=== PATIENT | male | born 1935 | race Caucasian/White ===

== ENCOUNTER 2017-12-01 11:28 | Outpatient (CLI) | payer OTHER ==
[~2017-12-01 11:28] MED LIST: LISINOPRIL20 MG; LOTREL 5-10 MG1 CAP; METFORMIN HCL500 MG; PLAVIX75 MG
== END 2017-12-01 11:45 | disposition home or self-care (01) ==
LOC: LAB 11:28
DX: E11.29 Type 2 diabetes mellitus with other diabetic kidney complication (principal)